=== PATIENT | male | born 1955 | race African-American/Black ===

== ENCOUNTER 2022-08-31 03:57 | Emergency (ER) | payer MEDICARE ==
[~2022-08-31] VITALS: Ht 180.3 cm; Wt 100.0 kg
[2022-08-31] MEDS ORDERED: LOSA1TAB34 PO (04:10)
[2022-08-31] MEDS ORDERED: NIFE-32 PO (04:11)
[2022-08-31] MEDS ORDERED: ACETAMINOPHEN 325MG TABLET PO ONE (08:30)
[2022-08-31] MEDS ORDERED: METOCLOPRAMIDE HCL 10MG TABLET PO ONE (08:30)
[2022-08-31] MEDS ORDERED: DIPHENHYDRAMINE 50MG CAPSULE PO ONE (08:30)
[2022-08-31 09:34] LABS: CHLORIDE 105 mEq/L (98-107)
[2022-08-31 09:41] LABS: BASOPHILS % 0.7 % (0.0-2.0); EOSINOPHILS % 4.9 % (0.0-5.0); HEMATOCRIT. 44.6 % (42.0-52.0); HEMOGLOBIN. 14.1 g/dL (14.0-18.0); LYMPHOCYTES % 14.4 % (20.0-50.0); MEAN CORPUSCULAR HEMOGLOBIN 24.1 pg (28.0-32.0); MEAN CORPUSCULAR VOLUME 76.3 fL (80.0-94.0); MEAN PLATELET VOLUME 8.9 fl (7.4-10.4); PLATELET 233 x1000/uL (130-400); RED BLOOD CELL COUNT 5.85 mill/uL (4.7-6.1); RED CELL DISTRIBUTION WIDTH 14.3 % (11.6-14.6)
[2022-08-31] MEDS ORDERED: KETOROLAC 60MG/2ML VIAL IM ONE (10:00)
[2022-08-31] MEDS ORDERED: DIAZEPAM 5 MG TABLET PO ONE (10:15)
[2022-08-31] MEDS ORDERED: VANCOMYCIN 1G PREMIX 200 ML IV ONE (10:30)
[2022-08-31] MEDS ORDERED: DEXT 5% IV SCH (10:30)
[2022-08-31] MEDS ORDERED: CEFTRIAXONE 2 G PREMIX 50 ML IV ONE (10:30)
[2022-08-31] MEDS ORDERED: AMPICILLIN 2,000 MG in SODIUM CHLORIDE 0.9% 100 ML IV ONE (10:30)
[2022-08-31] MEDS ORDERED: WATER IV SCH (10:30)
[2022-08-31] MEDS ORDERED: ACYCLOVIR IV SCH (10:30)
[2022-08-31] MEDS ORDERED: DEXAMETHASONE 10 MG/ML VIAL IV ONE (10:30)
[2022-08-31 11:14] VITALS: BP 143/98
[2022-08-31] MEDS ORDERED: CEFTRIAXONE 2 G in DEXTROSE 5% WATER 50 ML IV NR (11:15)
[2022-08-31] MEDS ORDERED: LOSA1TAB34 MT (11:42)
== END 2022-08-31 11:59 | disposition left against medical advice (07) ==
LOC: ER 03:57 → CANBEDREQ 09-02 09:28
DX: R51.9 Headache, unspecified (principal); M54.2 Cervicalgia; I10 Essential (primary) hypertension; Z20.822 Contact with and (suspected) exposure to COVID-19
CPT/HCPCS: 36415; 70450; 80053; 85025; 85651; 87426; 96372; 99284; C9803; J1885; J8597; Q0163; J0133; J0290; J0696; J7050; J7060